=== PATIENT | female | born 1990 | race Caucasian/White ===

== ENCOUNTER 2018-02-14 23:56 | Emergency (ER) | payer OTHER ==
[2018-02-15] MEDS: KETOROLAC 30 MG INJ IM (02:15)
== END 2018-02-15 05:00 | disposition home or self-care (01) ==
LOC: FTE 23:56
DX: N61.1 Abscess of the breast and nipple (principal); F17.210 Nicotine dependence, cigarettes, uncomplicated
CPT/HCPCS: 76642; 81025; 96372; 99285-25

== ENCOUNTER 2019-05-28 01:56 | Emergency (ER) | payer OTHER ==
[2019-05-28] MEDS: IBUPROFEN 200 MG TAB PO (02:49)
== END 2019-05-28 02:54 | disposition home or self-care (01) ==
LOC: E/R 01:56
DX: S09.90XA Unspecified injury of head, initial encounter (principal); R40.2142 Coma scale, eyes open, spontaneous, at arrival to emergency department; R40.2362 Coma scale, best motor response, obeys commands, at arrival to emergency department; R40.2252 Coma scale, best verbal response, oriented, at arrival to emergency department; B35.6 Tinea cruris; F17.210 Nicotine dependence, cigarettes, uncomplicated; Y04.8XXA Assault by other bodily force, initial encounter
CPT/HCPCS: 99283; Z7502